=== PATIENT | male | born 1995 | race Caucasian/White ===

== ENCOUNTER 2019-03-02 19:03 | Emergency (ER) | payer OTHER ==
[~2019-03-02] VITALS: Ht 172.7 cm; Wt 59.0 kg
[2019-03-02 19:38] VITALS: BP 108/74
--- NOTE | 2019-03-02 19:58 | ED.ADGEN ---
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 Patient reports chest tightness and achiness. Reports nasal congestion, rhinorrhea and occasional cough. No fever chills, nausea vomiting or sweats. No abdominal pain, leg pain or swelling. No other acute symptoms or complaints Review of Systems Review of Systems Review symptoms as per history of present illness. All other review symptoms are negative. All other systems were reviewed and found to be within normal limits, except as documented in this note. Current Medications Current Medications Current Medications Medications (Trade) Dose Ordered Sig/Anastasiya Start Time Stop Time Status Last Admin Dose Admin Acetaminophen (Tylenol) 650 mg 1X ONCE 03/02/19 20:00 03/02/19 20:01 DC 03/02/19 19:54 650 MG Albuterol/ Ipratropium (Duoneb) 3 ml 1X ONCE 03/02/19 20:00 03/02/19 20:01 DC 03/02/19 20:47 3 ML Allergies Allergies Allergies Coded Allergies Type Severity Reaction Last Updated Verified No Known Drug Allergies 05/20/16 No Physical Exam Physical Exam Constitutional: Well developed, well nourished, no acute distress, non-toxic appearance. [] HENT: Normocephalic, atraumatic, bilateral external ears normal, oropharynx moist, nose, congestion. [] Eyes: PERRLA, EOMI, conjunctiva normal, no discharge. [] Neck: Normal range of motion, no tenderness. [] Cardiovascular:Heart rate regular rhythm, no murmur [] Lungs & Thorax: Bilateral breath sounds clear to auscultation, diminished breath sounds [] Abdomen: Bowel sounds normal, soft, no tenderness. [] Skin: Warm, dry, no erythema, no rash. [] Back: No tenderness, no CVA tenderness. [] Extremities: No tenderness, no edema. [] Neurologic: Alert and oriented X 3, normal motor function, normal sensory function, no focal deficits noted. [] Psychologic: Affect normal, judgement normal, mood normal. [] Current Patient Data Vital Signs Vital Signs Date Time Temp Pulse Resp B/P (MAP) Pulse Ox O2 Delivery O2 Flow Rate FiO2 03/02/19 19:38 98.4 97 20 97 Room Air EKG EKG [EKG: Reviewed sinus rhythm, incomplete right bundle branch block, no acute ST- T wave changes.] Radiology/Procedures Radiology/Procedures [Asked x-ray: No acute cardiopulmonary disease.] Course & Med Decision Making Course & Med Decision Making Pertinent Labs and Imaging studies reviewed. (See chart for details) [Substernal chest pain nonexertional, normal EKG, chest x-ray. Mom given with improvement. Suspected GI related. Recommend supportive care and PCP follow-up. Return precautions reviewed. Patient verbalizes understanding agreement discharge instructions prior to departure.] Final Impression Final Impression [Substernal chest pain] Dragon Disclaimer Dragon Disclaimer This electronic medical record was generated, in whole or in part, using a voice recognition dictation system. YENNI NARANJO DO Mar 02, 2019 19:58
[2019-03-02] MEDS ORDERED: ACETAMINOPHEN 325 MG TABLET PO ONE (20:00)
[2019-03-02] MEDS ORDERED: IPRATRPIUM/ALBUTEROL 0.5/2.5MG 3 ML NEBU. NEB ONE (20:00)
[2019-03-02] MEDS ORDERED: FAMO-63 PO (21:15)
--- NOTE | 2019-03-02 21:59 | RAD ---
PA and lateral chest x-rays HISTORY: Chest pain and dizziness. FINDINGS: Heart size normal. Mediastinal silhouette is normal. Tiny calcified granuloma right lung base. No pneumothorax, pulmonary opacities or pleural effusions. Bones are unremarkable. IMPRESSION: No acute process. Electronically signed by: Haseeb Hall MD (03/02/2019 9:56 PM) [facility]
--- NOTE | 2019-03-03 03:38 | EKG ---
[address] [address] Test Date: 2019-03-02 Test Time: 20:49:54 Pat Name: YFN STEVEN Department: Room: Gender: M Medical Insurance Clerk: : 1995 Requested By: YENNI NARANJO Order Number: [id number] Reading MD: Measurements Intervals [place] Rate: 82 P: 54 FL: 124 QRS: 48 QRSD: 100 T: 54 QT: 332 QTc: 391 Interpretive Statements SINUS RHYTHM INCOMPLETE RIGHT BUNDLE BRANCH BLOCK NO SPECIFIC ECG ABNORMALITIES RI6.01 No previous ECG available for comparison
== END 2019-03-02 20:24 | disposition home or self-care (01) ==
LOC: ER 19:03
DX: R07.2 Precordial pain (principal); R09.81 Nasal congestion
CPT/HCPCS: 71046; 93005; 94640; 99284; J7620